=== PATIENT | female | born 1985 | race Caucasian/White ===

== ENCOUNTER 2018-05-12 17:28 | Emergency (ER) | payer MEDICAID, OTHER ==
[2018-05-12] MEDS ORDERED: NACL 0.9% 1000 ML 1,000 ML IV ONE (21:34)
--- NOTE | 2018-05-12 21:54 | Emergency Department Report ---
ED Female HPI - General Chief complaint: Urogenital-Female Stated complaint: PREG AND BLEEDING 5WKS Time Seen by Provider: 05/12/18 21:51 Source: patient Mode of arrival: Ambulatory Limitations: No Limitations - History of Present Illness Initial comments: Patient c/o Vaginal spotting which started today. denies any h/o trauma or injury. MD Complaint: vaginal bleeding -: Sudden Location: perineum Radiation: non-radiating Severity: mild Severity scale (0 -10): 1 Quality: cramping Consistency: intermittent, now resolved Improves with: none Worsens with: none Are you Now?: Yes Associated Symptoms: vaginal bleeding - Related Data Sexually active: Yes Previous Rx's Medication Instructions Recorded Last Taken Type Pantoprazole [Protonix] 40 mg PO QDAY #30 tablet 07/04/13 Unknown Rx Promethazine [Phenergan] 25 mg PO Q6H PRN #20 tablet 07/04/13 Unknown Rx Promethazine [Phenergan] 25 mg MD Q6HR PRN #10 supp.rect 07/04/13 Unknown Rx Ciprofloxacin HCl [Ciprofloxacin 500 mg PO BID #14 tablet 08/15/15 Unknown Rx TAB] Ibuprofen [Motrin 800 MG tab] 800 mg PO Q8HR PRN #30 tablet 08/15/15 Unknown Rx Allergies Allergy/AdvReac Type Severity Reaction Status Date / Time latex Allergy Rash Verified 05/04/13 09:39 ED Review of Systems ROS: Stated complaint: PREG AND BLEEDING 5WKS Other details as noted in HPI Comment: All other systems reviewed and negative Constitutional: denies: chills, fever Eyes: denies: eye pain ENT: denies: ear pain Respiratory: denies: cough, orthopnea, shortness of breath Cardiovascular: denies: chest pain, palpitations Endocrine: no symptoms reported Gastrointestinal: denies: abdominal pain, nausea, vomiting, diarrhea, constipation Genitourinary: denies: urgency, dysuria, frequency Musculoskeletal: denies: back pain, joint swelling Skin: denies: rash, lesions Neurological: denies: headache, weakness, numbness Psychiatric: denies: anxiety, depression Hematological/Lymphatic: denies: easy bleeding, easy bruising ED Past Medical Hx - Past Medical History Hx Asthma: Yes (no meds) - Surgical History Additional Surgical History: EGD r/t stomach ulcer in April - Social History Smoking Status: Never Smoker Substance Use Type: None - Medications Home Medications: Home Medications Medication Instructions Recorded Confirmed Last Taken Type Pantoprazole [Protonix] 40 mg PO QDAY #30 tablet 07/04/13 Unknown Rx Promethazine [Phenergan] 25 mg PO Q6H PRN #20 tablet 07/04/13 Unknown Rx Promethazine [Phenergan] 25 mg MD Q6HR PRN #10 supp.rect 07/04/13 Unknown Rx Ciprofloxacin HCl [Ciprofloxacin 500 mg PO BID #14 tablet 08/15/15 Unknown Rx TAB] Ibuprofen [Motrin 800 MG tab] 800 mg PO Q8HR PRN #30 tablet 08/15/15 Unknown Rx ED Physical Exam - General Limitations: No Limitations General appearance: alert, in no apparent distress - Head Head exam: Present: atraumatic, normocephalic, normal inspection - Eye Eye exam: Present: normal appearance, PERRL, EOMI Pupils: Present: normal accommodation - ENT ENT exam: Present: normal exam, normal orophraynx, mucous membranes moist - Neck Neck exam: Present: normal inspection, full ROM. Absent: tenderness - Respiratory Respiratory exam: Present: normal lung sounds bilaterally. Absent: respiratory distress, wheezes, rales, rhonchi, stridor - Cardiovascular Cardiovascular Exam: Present: regular rate, normal rhythm, normal heart sounds - GI/Abdominal GI/Abdominal exam: Present: soft, normal bowel sounds. Absent: distended, tenderness, guarding, rebound, rigid - Rectal Rectal exam: Present: deferred - External exam: Present: normal external exam. Absent: lesions Speculum exam: Present: vaginal bleeding. Absent: foreign body, tissue, laceration Bi-manual exam: Present: normal bi-manual exam, other (Charjoseone was MsNereyda CASTANEDA, RN>) - Extremities Exam Extremities exam: Present: normal inspection, full ROM, normal capillary refill - Back Exam Back exam: Present: normal inspection, full ROM. Absent: tenderness - Neurological Exam Neurological exam: Present: alert, oriented X3, CN II-XII intact - Psychiatric Psychiatric exam: Present: normal affect, normal mood - Skin Skin exam: Present: warm, dry, intact, normal color. Absent: rash ED Course Vital Signs 05/12/18 05/12/18 05/13/18 17:44 22:15 00:07 Temperature 98.0 F 98.1 F Pulse Rate 91 H 88 Respiratory 16 16 Rate Blood Pressure 105/64 116/71 Blood Pressure 116/71 [Left] O2 Sat by Pulse 100 100 100 Oximetry ED Medical Decision Making - Lab Data Result diagrams: 05/12/18 21:36 05/12/18 21:36 Lab Results 05/12/18 05/12/18 05/12/18 Range/Units 21:36 21:36 21:36 WBC 5.8 (4.5-11.0) K/mm3 RBC 3.82 (3.65-5.03) M/mm3 Hgb 12.1 (10.1-14.3) gm/dl Hct 33.8 (30.3-42.9) % MCV 89 (79-97) fl MCH 32 (28-32) pg MCHC 36 H (30-34) % RDW 13.7 (13.2-15.2) % Plt Count 178 (140-440) K/mm3 Lymph % (Auto) 40.6 H (13.4-35.0) % [place] % (Auto) 9.3 H (0.0-7.3) % Eos % (Auto) 0.8 (0.0-4.3) % Baso % (Auto) 0.2 (0.0-1.8) % Lymph # 2.4 (1.2-5.4) K/mm3 [place] # 0.5 (0.0-0.8) K/mm3 Eos # 0.0 (0.0-0.4) K/mm3 Baso # 0.0 (0.0-0.1) K/mm3 Seg Neutrophils % 49.1 (40.0-70.0) % Seg Neutrophils # 2.8 (1.8-7.7) K/mm3 Sodium 139 (137-145) mmol/L Potassium 3.9 (3.6-5.0) mmol/L Chloride 104.2 (98-107) mmol/L Carbon Dioxide 26 (22-30) mmol/L Anion Gap 13 mmol/L BUN 9 (7-17) mg/dL Creatinine 0.6 L (0.7-1.2) mg/dL Estimated GFR > 60 ml/min BUN/Creatinine Ratio 15 % Glucose 107 H (65-100) mg/dL Calcium 8.9 (8.4-10.2) mg/dL Total Bilirubin 0.20 (0.1-1.2) mg/dL AST 14 (5-40) units/L ALT 8 (7-56) units/L Alkaline Phosphatase 53 (35-129) units/L Total Protein 7.5 (6.3-8.2) g/dL Albumin 4.2 (3.9-5) g/dL Albumin/Globulin Ratio 1.3 % Blood Type O POSITIVE - Radiology Data Radiology results: report reviewed, image reviewed Normal pelvic ultrasound. - Medical Decision Making Threatened Miscarriage. Will discharge home with OBGYN follow up on Tuesday. Critical care attestation.: If time is entered above; I have spent that time in minutes in the direct care of this critically ill patient, excluding procedure time. ED Disposition Clinical Impression: Vaginal bleeding affecting early , Threatened in early Disposition: TO HOME OR SELFCARE Is pt being admited?: No Does the pt Need Aspirin: No Condition: Stable Instructions: Threatened Miscarriage (ED) Additional Instructions: Please follow up with Dr Tyelr Murphy (biomedical engineer) on Tuesday. Return to the ED if your condition worsens. Referrals: PRIMARY CARE, [Primary Care Provider] - 3-5 Days Forms: Work/School Release Form(ED) Time of Disposition: :02
[2018-05-12 22:06] LABS: Basophils % (Auto) 0.2 % (0.0-1.8); Eosinophils % (Auto) 0.8 % (0.0-4.3); Hematocrit 33.8 % (30.3-42.9); Hemoglobin 12.1 gm/dl (10.1-14.3); Lymphocytes # (Auto) 2.4 K/mm3 (1.2-5.4); Lymphocytes % (Auto) 40.6 % (13.4-35.0); Mean Corpuscular HGB Conc 36 % (30-34); Mean Corpuscular Hemoglobin 32 pg (28-32); Mean Corpuscular Volume 89 fl (79-97); Monocytes # (Auto) 0.5 K/mm3 (0.0-0.8); Monocytes % (Auto) 9.3 % (0.0-7.3); Platelet Count 178 K/mm3 (140-440); Red Blood Count 3.82 M/mm3 (3.65-5.03); Red Cell Distribution Width 13.7 % (13.2-15.2)
[2018-05-12 22:08] LABS: Alanine Aminotransferase 8 units/L (7-56); Albumin 4.2 g/dL (3.9-5); BUN/Creatinine Ratio 15; Blood Urea Nitrogen 9 mg/dL (7-17); Calcium 8.9 mg/dL (8.4-10.2); Hemolysis Index 2
[2018-05-12 22:27] VITALS: BP 116/71
[2018-05-12 23:10] LABS: Bilirubin,Urine NEG (Negative); Blood,Urine LG (Negative); Color,Urine Yellow (Yellow); Mucus,Urine FEW /HPF; Protein,Urine <15 mg/dL mg/dL (Negative)
--- NOTE | 2018-05-13 00:37 | Ultrasound Report ---
FINAL REPORT PROCEDURE: US OB TRANSVAGINAL TECHNIQUE: Real-time transvaginal sonography of the uterus, placenta, amniotic fluid, adnexa, and fetus was performed with image documentation. Measurements were obtained to determine age/size. M-mode Doppler was used to document heartbeat. CPT 60463 HISTORY: + HCG, bleeding COMPARISON: No prior studies are available for comparison. FINDINGS: No intrauterine is identified. The uterus measures 8.8 x 5 5 x 6.2 centimeters. The endometrium is thickened at 12.3 millimeters. There is no endometrial fluid. The right ovary measures 2.7 x 1.8 x 1.8 centimeters. The left ovary measures 2.2 x 2.1 x 2 centimeters. There is no ovarian mass or torsion. There is no free fluid. IMPRESSION: Normal uterus and ovaries. No evidence of intrauterine or ectopic is identified.
--- NOTE | 2018-05-13 00:40 | Ultrasound Report ---
FINAL REPORT ULTRASOUND OB UNDER 18 WEEKS TECHNIQUE: Real-time trans abdominal sonography of the uterus, placenta, amniotic fluid, adnexa, and fetus was performed with image documentation. Measurements were obtained to determine age/size. M-mode Doppler was used to document heartbeat. HISTORY: + HCG, bleeding COMPARISON: No prior studies are available for comparison. FINDINGS: No intrauterine is identified. The uterus measures 8.8 x 5 5 x 6.2 centimeters. The endometrium is thickened at 12.3 millimeters. There is no endometrial fluid. The right ovary measures 2.7 x 1.8 x 1.8 centimeters. The left ovary measures 2.2 x 2.1 x 2 centimeters. There is no ovarian mass or torsion. There is no free fluid. IMPRESSION: Normal uterus and ovaries. No evidence of intrauterine or ectopic is identified.
== END 2018-05-13 01:24 | disposition home or self-care (01) ==
LOC: ED 17:28
DX: O20.0 Threatened abortion (principal); O26.891 Other specified pregnancy related conditions, first trimester; O99.511 Diseases of the respiratory system complicating pregnancy, first trimester; Z3A.01 Less than 8 weeks gestation of pregnancy; Z91.040 Latex allergy status
CPT/HCPCS: 36415; 76801; 76817; 80053; 81001; 84702; 85025; 86850; 86900; 86901; 87210; 87591

== ENCOUNTER 2019-06-20 18:39 | Outpatient (CLI) | payer MEDICAID ==
[2019-06-20] MEDS ORDERED: LACTATED RINGERS 500 ML IV ONE (19:31)
[2019-06-20 20:18] VITALS: BP 127/72
--- NOTE | 2019-06-20 20:43 | Ultrasound Report ---
LIMITED OBSTETRIC ULTRASOUND HISTORY: well-being COMPARISON: None. TECHNIQUE: Limited OB ultrasound performed. FINDINGS: Ovaries And Uterus: No significant abnormality. Gestation: Single fetus present. Placenta: anterior location and free of the internal cervical os. Presentation: vertex Amniotic Fluid Index: 14.3 cm IMPRESSION Single living intrauterine at approximately RONDA 14.3 Signer Name: Michael Brown MD Signed: 06/20/2019 8:39 PM Workstation Name: [id number]
--- NOTE | 2019-06-20 20:44 | Ultrasound Report ---
CLINICAL DATA: See reason for exam. TECHNICAL DATA: Document breath, motion, gestational age, tone, and fluid. FINDINGS: respiration, tone, and motion are well visualized and normal. Amniotic fluid volume is normal. Biophysical profile score is 8/8. The lower uterine segment is evaluated and there is no evidence of placenta previa. heart rate is 145 Heart Rate. IMPRESSION: The biophysical profile score is 8/8. Signer Name: Michael Brown MD Signed: 06/20/2019 8:39 PM Workstation Name: [id number]
== END 2019-06-20 21:07 | disposition home or self-care (01) ==
LOC: TRG 18:39
PROVIDERS: ATTEND Obstetrics & Gynecology
DX: O47.03 False labor before 37 completed weeks of gestation, third trimester (principal); Z3A.36 36 weeks gestation of pregnancy
CPT/HCPCS: 59025; 76815; 76819